=== PATIENT | male | born 1965 | race Caucasian/White ===

== ENCOUNTER 2017-03-17 12:06 | Emergency (ER) | payer OTHER ==
[~2017-03-17] VITALS: Ht 172.7 cm; Wt 82.8 kg
[~2017-03-17 12:06] MED LIST: ALBU1AER9 INH; ASPI81TA21 PO; CHOL100010 PO; DIVA250T PO; EFF75 PO; ENAL1TAB29 PO; FEXO1TAB46 PO; FLUT50SP14 NAE; GLGKIT SC; IBUP600T44 PO; INSPMPNVLG; MULT-506 PO; OMEG10007 PO; SIMV20TA2 PO; SYN150 PO; TRAM-10 PO
[2017-03-17 12:10] VITALS: TEMP 36.7; Ht 172.7 cm; Wt 82.8 kg
[2017-03-17] MEDS ORDERED: SODIUM CHLORIDE 0.9% 1000ML 1,000 ML IV STA (12:28)
[2017-03-17] MEDS ORDERED: DiphenhydrAMINE HCL 50 MG/ML VIAL IV STA (12:28)
[2017-03-17] MEDS ORDERED: PROCHLORPERAZINE 5 MG/ML 2 ML VIAL IV STA (12:28)
[2017-03-17 12:57] LABS: BASO % 0.2 %; BASO ABS # 0.03 K/uL (0-0.2); COMPLETE YES; EOS % 0.1 %; HEMATOCRIT 40.6 % (42-52); IG% 1.6 %; LYMPH % 11.4 %; MEAN CELL VOLUME 84.6 fL (80-100); MEAN CORPUSCULAR HEMOGLOBIN 30.6 pg (25-34); MEAN CORPUSCULAR HGB CONC 36.2 g/dl (32-36); MEAN PLATELET VOLUME 9.6 fL (7.4-10.4); MONO % 2.6 %; NEUT % 84.1 %; PLATELET COUNT 308 K/uL (130-400); WHITE BLOOD COUNT 15.76 K/uL (4.8-10.8)
[2017-03-17 12:59] LABS: ISTAT CREATININE 0.7 mg/dl (0.6-1.3); ISTAT HEMOGLOBIN 14.6 g/dl (14.0-18.0); ISTAT IONIZED CALCIUM 1.19 mmol/l (1.12-1.32)
[2017-03-17 13:18] LABS: CALCIUM 8.5 mg/dl (8.5-10.1); CREATININE 0.92 mg/dl (0.60-1.40); POTASSIUM 3.6 mmol/L (3.5-5.1)
[2017-03-17] MEDS ORDERED: CHOL1000 PO (13:18)
[2017-03-17] MEDS ORDERED: TOPI50TA16 PO (13:18)
[2017-03-17] MEDS ORDERED: ALBU18002 INH (13:18)
--- NOTE | 2017-03-17 13:18 | DIAGNOSTIC IMAGING REPORT ---
HEAD CT NONCONTRAST CT DOSE: 537.48 mGy.cm HISTORY: Pt c/o acute headache TECHNIQUE: Multiaxial CT images of the head were performed without the use of intravenous contrast. Automated exposure control was utilized for this study. A dose lowering technique was utilized adhering to the principles of ALARA. Comparison: Head CT 10/28/2012. Findings: The paranasal sinuses and mastoid air cells are clear. The calvarium and skull base are intact. The ventricles and sulci are within normal limits. There is no mass, hematoma, midline shift, or acute infarct. There are few areas of ring artifact within the brain. Impression: No acute intracranial abnormality. Electronically signed by: Eric Vance M.D. 03/17/2017 1:17 PM Dictated Date/Time: 03/17/2017 1:12 PM
[2017-03-17] MEDS ORDERED: VALPROATE SOD IV 500 MG in DEXTROSE 5% 50ML 50 ML IV STA (13:30)
[2017-03-17] MEDS ORDERED: MAGNESIUM SULFATE 1GM / D5W 1 GM BAG IV STA (13:30)
[2017-03-17] MEDS ORDERED: DEXAMETHASONE SOD INJ 10 MG/ML VIAL IV ONE (13:30)
--- NOTE | 2017-03-17 14:34 | EMERGENCY ROOM VISIT NOTE ---
History Report prepared by Jim: Vickie Sears Under the Supervision of: Dr. Bj Loja M.D. First contact with patient: 12:19 Chief Complaint: HEADACHE Stated Complaint: MIGRAINE W/NAUSEA X 11 DAYS History of Present Illness The patient is a 51 year old male who presents to the Emergency Room with complaints of persistent headache for the past 11 days. The patient has a history of migraines and follows with neurology. He thinks his current headache is a migraine. He reports nausea. He denies any other symptoms. He was started on prednisone 6 days ago which has not improved his migraine significantly. He has a history of diabetes. He notes that his blood sugar has been increased recently after starting the prednisone. He did have to take some extra insulin. He notes that he has not had any imaging of his head for the past 3-4 years. He has been getting more headaches recently. He has had viral meningitis in the past and notes that his current symptoms do not feel like his previous meningitis. Source of History: patient Onset: 11 days ago Position: head Quality: ache Timing: other (persistent) Associated Symptoms: + nausea Review of Systems See HPI for pertinent positives & negatives. A total of 10 systems reviewed and were otherwise negative. Past Medical & Surgical Medical Problems: (1) Asthma (2) Bronchitis (3) Diabetes mellitus (4) Hypothyroidism (5) Vasectomy Family History Diabetes mellitus Heart disease Hypertension Lung disease Stroke Social History Smoking Status: Never Smoker Alcohol Use: occasionally Marital Status: Housing Status: lives with family Occupation Status: employed Current/Historical Medications Scheduled Aspirin Enteric Coated (Ecotrin Or Generic), 81 MG PO DAILY Cholecalciferol (Vitamin D3), 1 TAB PO DAILY Divalproex Sodium (Depakote Er), 1 TAB PO HS Fexofenadine Hcl (Holly), 180 MG PO DAILY PRN Fish Oil ([place]-3), 4 CAPSULES PO DAILY Glucagon (Glucagon Emergency Kit), 1 KIT SC UD Insulin Aspart (novoLOG INSULIN PUMP ), 30 UNITS N/A DAILY Levothyroxine Sodium (Synthroid), 1 TAB PO DAILY Multivitamin (Multivitamin), 1 TABLET PO DAILY Simvastatin (Zocor), 40 MG PO QPM Topiramate (Topamax), 2 TAB PO BID Tramadol (Ultram), 50 MG PO Q4HR PRN Venlafaxine Hcl (Effexor), 75 MG PO DAILY Scheduled PRN Albuterol Sulfate (Proair Respiclick), 2 PUFFS INH QID PRN for SOB/Wheezing Ibuprofen (Motrin), 600 MG PO Q6 PRN Allergies Coded Allergies: Butorphanol (Verified Allergy, Unknown, ANAPHYLAXIS, 03/17/17) Dicyclomine (Verified Allergy, Unknown, Rash and hypotension., 03/17/17) Glimepiride (Verified Allergy, Unknown, Unknown, 03/17/17) [facility] Physical Exam Vital Signs Date Time Temp Pulse Resp B/P (MAP) Pulse Ox O2 Delivery O2 Flow Rate FiO2 03/17/17 15:43 68 20 138/81 98 Room Air 03/17/17 15:43 68 20 138/81 98 03/17/17 14:10 72 18 124/66 97 Room Air 03/17/17 13:32 75 18 139/71 94 Room Air 03/17/17 12:10 36.7 57 20 153/85 96 Room Air Physical Exam GENERAL: Patient is a healthy-appearing well-nourished male HEAD: Normocephalic atraumatic EYES: Ocular movements intact pupils equal and react to light OROPHARYNX mucous membranes are moist no exudates present no erythema or edema present NECK: Supple no nuchal rigidity, no evidence of meningitis or encephalitis on exam. CHEST: Good equal expansion LUNGS: Clear and equal to auscultation CARDIAC: Normal S1 and S2 ABDOMEN: Soft nontender no guarding BACK: No CVA tenderness EXTREMITIES: No pain upon palpation normal muscle strength in all groups no clubbing cyanosis or edema NEURO: Patient is following commands and answering questions appropriately. Alert and oriented x3 Cranial Nerves 2-12 grossly intact Medical Decision & Procedures ER Provider Diagnostic Interpretation: Radiology results as stated below per my review and radiologist interpretation: HEAD CT NONCONTRAST CT DOSE: 537.48 mGy.cm HISTORY: Pt c/o acute headache TECHNIQUE: Multiaxial CT images of the head were performed without the use of intravenous contrast. Automated exposure control was utilized for this study. A dose lowering technique was utilized adhering to the principles of ALARA. Comparison: Head CT 10/28/2012. Findings: The paranasal sinuses and mastoid air cells are clear. The calvarium and skull base are intact. The ventricles and sulci are within normal limits. There is no mass, hematoma, midline shift, or acute infarct. There are few areas of ring artifact within the brain. Impression: No acute intracranial abnormality. Electronically signed by: Eric Vance M.D. 03/17/2017 1:17 PM Dictated Date/Time: 03/17/2017 1:12 PM Laboratory Results 03/17/17 12:39 Red Blood Count 4.80, Mean Corpuscular Volume 84.6, Mean Corpuscular Hemoglobin 30.6, Mean Corpuscular Hemoglobin Concent 36.2, Mean Platelet Volume 9.6, Neutrophils (%) (Auto) 84.1, Lymphocytes (%) (Auto) 11.4, Monocytes (%) (Auto) 2.6, Eosinophils (%) (Auto) 0.1, Basophils (%) (Auto) 0.2, Neutrophils # (Auto) 13.25, Lymphocytes # (Auto) 1.80, Monocytes # (Auto) 0.41, Eosinophils # (Auto) 0.02, Basophils # (Auto) 0.03 03/17/17 12:39 Test 03/17/17 12:39 03/17/17 12:44 White Blood Count 15.76 K/uL (4.8-10.8) Red Blood Count 4.80 M/uL (4.7-6.1) Hemoglobin 14.7 g/dL (14.0-18.0) Hematocrit 40.6 % (42-52) Mean Corpuscular Volume 84.6 fL (80-100) Mean Corpuscular Hemoglobin 30.6 pg (25-34) Mean Corpuscular Hemoglobin Concent 36.2 g/dl (32-36) Platelet Count 308 K/uL (130-400) Mean Platelet Volume 9.6 fL (7.4-10.4) Neutrophils (%) (Auto) 84.1 % Lymphocytes (%) (Auto) 11.4 % Monocytes (%) (Auto) 2.6 % Eosinophils (%) (Auto) 0.1 % Basophils (%) (Auto) 0.2 % Neutrophils # (Auto) 13.25 K/uL (1.4-6.5) Lymphocytes # (Auto) 1.80 K/uL (1.2-3.4) Monocytes # (Auto) 0.41 K/uL (0.11-0.59) Eosinophils # (Auto) 0.02 K/uL (0-0.5) Basophils # (Auto) 0.03 K/uL (0-0.2) RDW Standard Deviation 39.5 fL (36.4-46.3) RDW Coefficient of Variation 12.8 % (11.5-14.5) Immature Granulocyte % (Auto) 1.6 % Immature Granulocyte # (Auto) 0.25 K/uL (0.00-0.02) Est Creatinine Clear Calc Drug Dose 99.6 ml/min Estimated GFR () 111.2 Estimated GFR (Non- 96.0 BUN/Creatinine Ratio 13.0 (10-20) Calcium Level 8.5 mg/dl (8.5-10.1) Total Bilirubin 0.3 mg/dl (0.2-1) Direct Bilirubin 0.1 mg/dl (0-0.2) Aspartate Amino Transf (AST/SGOT) 45 U/L (15-37) Alanine Aminotransferase (ALT/SGPT) 86 U/L (12-78) Alkaline Phosphatase 133 U/L (45-117) Total Protein 7.1 gm/dl (6.4-8.2) Albumin 3.4 gm/dl (3.4-5.0) Lipase 159 U/L (73-393) Bedside Hemoglobin 14.6 g/dl (14.0-18.0) Bedside Hematocrit 43 % (42-52) Bedside Sodium 137 mEq/L (135-144) Bedside Potassium 3.6 mEq/L (3.3-5.0) Bedside Chloride 102 mEq/L (101-112) Bedside Total CO2 22 mEq/l (24-31) Anion Gap 18.0 mmol/L (16-25) Bedside Blood Urea Nitrogen 12 mg/dl (7-18) Bedside Creatinine 0.7 mg/dl (0.6-1.3) Bedside Glucose (other) 143 mg/dl (70-99) Bedside Ionized Calcium (Katt) 1.19 mmol/l (1.12-1.32) Labs reviewed by ED physician. Medications Administered Medications (Trade) Dose Ordered Sig/Joy Route Start Time Stop Time Status Last Admin Dose Admin Sodium Chloride 1,000 ml @ 999 mls/hr Q1H1M STAT IV 03/17/17 12:28 03/17/17 13:28 DC 03/17/17 12:50 999 MLS/HR Prochlorperazine Edisylate (Compazine Inj) 10 mg NOW STAT IV 03/17/17 12:28 03/17/17 12:30 DC 03/17/17 12:50 10 MG Diphenhydramine HCl (Benadryl Inj) 50 mg NOW STAT IV 03/17/17 12:28 03/17/17 12:30 DC 03/17/17 12:50 50 MG Valproate Sodium 500 mg/Dextrose 55 ml @ 55 mls/hr NOW STAT IV 03/17/17 13:30 03/17/17 14:29 DC 03/17/17 14:13 55 MLS/HR Dexamethasone Sodium Phosphate (Decadron Inj) 10 mg NOW ONCE IV 03/17/17 13:30 03/17/17 13:33 DC 03/17/17 13:44 10 MG Magnesium Sulfate (Magnesium Sulfate) 1 gm NOW STAT IV 03/17/17 13:30 03/17/17 13:33 DC 03/17/17 13:45 1 GM ED Course 1222: Past medical records reviewed. The patient was evaluated in room B5. A complete history and physical examination was performed. 1228: Benadryl Inj 50 mg IV, Compazine Inj 10 mg IV, NSS 1000 ml @ 999 mls/hr IV. 1330: Magnesium Sulfate 1 gm IV, Decadron Inj 10 mg IV, Valproate Sodium 500 mg/ Dextrose 55 ml @ 55 mls/hr IV. 1425: Upon reexamination the patient is resting comfortably. I discussed results and treatment plan with the patient. He verbalizes agreement and understanding. The patient is ready for discharge. Medical Decision Differential diagnosis: Etiologies such as migraine headache, meningitis, sinusitis, CO exposure, ICH, SAH, infection, tumor, headache, sinus thrombosis, arterial dissection, as well as others were entertained. This is a 51-year-old male who presents emergency department complaining of headache. 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 He has no evidence of meningitis encephalitis on exam. An IV was established, the patient given normal saline bolus, Toradol, Compazine, Benadryl. He was also given magnesium as well as Decadron and Depakote. Repeat examination revealed much improvement patient's symptoms. I do believe that the patient is well enough to be safely discharged home for follow-up this primary care physician. Patient was in agreement with the treatment plan. Medication Reconcilliation Current Medication List: was personally reviewed by me Blood Pressure Screening Patient's blood pressure: Normal blood pressure Blood pressure disposition: Did not require urgent referral Impression Primary Impression: Headache Scribe Attestation The scribe's documentation has been prepared under my direction and personally reviewed by me in its entirety. I confirm that the note above accurately reflects all work, treatment, procedures, and medical decision making performed by me. Departure Information Dispostion Home / Self-Care Referrals Jay Key M.D. (PCP) Janak Bello M.D. (MEDICINE) Forms HOME CARE DOCUMENTATION FORM, IMPORTANT VISIT INFORMATION Patient Instructions Headache Pain, My [facility] Additional Instructions Increase fluid intake next 48 hours You have been examined and treated today on an emergency basis only. This is not a substitute for, or an effort to provide, complete comprehensive medical care. It is impossible to recognize and treat all injuries or illnesses in a single emergency department visit. It is therefore important that you follow up closely with Dr Bello. Call as soon as possible for an appointment. Thank you for your time and consideration. I look forward to speaking with you again soon. Please don't hesitate to call us if you have any questions. Problem Qualifiers Primary Impression: Headache Headache type: tension-type Headache chronicity pattern: acute headache Intractability: not intractable Qualified Codes: G44.209 - Tension-type headache, unspecified, not intractable
[2017-03-17 15:43] VITALS: BP 138/81; PULSE 68; O2SAT 98
== END 2017-03-17 15:30 | disposition home or self-care (01) ==
LOC: C.EDB 12:09
DX: G44.209 Tension-type headache, unspecified, not intractable (principal); R11.0 Nausea; E11.9 Type 2 diabetes mellitus without complications; E03.9 Hypothyroidism, unspecified; J45.909 Unspecified asthma, uncomplicated; Z79.4 Long term (current) use of insulin; Z79.82 Long term (current) use of aspirin; Z79.899 Other long term (current) drug therapy; Z87.09 Personal history of other diseases of the respiratory system; Z82.49 Family history of ischemic heart disease and other diseases of the circulatory system; Z83.3 Family history of diabetes mellitus; Z82.3 Family history of stroke; Z83.6 Family history of other diseases of the respiratory system